=== PATIENT | male | born 1960 | race Two or more races ===

== ENCOUNTER 2025-03-04 07:59 | Emergency (ER) | payer SELFPAY ==
[~2025-03-04] VITALS: Ht 167.6 cm; Wt 70.0 kg
[2025-03-04 08:02] VITALS: BP 116/56; PULSE 74; RESP 16; TEMP 36.7; O2SAT 99
== END 2025-03-04 08:10 | disposition left against medical advice (07) ==
LOC: ER 07:59
DX: R53.1 Weakness (principal)
CPT/HCPCS: 99283